=== PATIENT | female | born 1970 | race Two or more races ===

== ENCOUNTER 2016-06-18 23:16 | Emergency (ER) | payer SELFPAY ==
--- NOTE | 2016-06-19 00:56 | ER Document Report ---
ED Extremity Problem, Lower - General Chief Complaint: Leg Pain Stated Complaint: LEFT LEG AND HIP PAIN Time seen by provider: 00:56 Mode of Arrival: Wheelchair Information source: Patient, Relative - Son TRAVEL OUTSIDE OF THE [place] IN LAST 30 DAYS: No - HPI Patient complains to provider of: Pain Location: Knee Occurred: Other - 3 weeks Onset/Duration: Gradual, Persistent Quality of pain: Achy Severity: Moderate Pain Level: 3 Context: Direct blow Recent injury: No Exacerbated by: Movement, Walking Relieved by: Nothing Notes: Patient is a 46-year-old female who presents to the emergency room complaining of left knee pain, states she had an injury at work when a metal object fell and hit her on the medial left knee, this occurred back in January, she was initially seen, states she had x-rays performed at that time and was diagnosed with a bony contusion, she seemed to get better intermittently, over the last 2- 3 weeks she reports feeling increased pain, swelling and mild bruising to this area once again, she denies any new injury, she did follow up at her primary care provider's office 2 weeks ago, states she had repeat x-rays done but has not followed up for results - Related Data Allergies/Adverse Reactions: No Known Allergies Allergy (Verified 06/18/16 23:35) Past Medical History - General Information source: Patient, Relative - Son - Social History Smoking Status: Never Smoker Chew tobacco use (# tins/day): No Frequency of alcohol use: None Drug Abuse: None Family History: Reviewed & Not Pertinent Patient has suicidal ideation: No Patient has homicidal ideation: No Neurological Medical History: Denies: Hx Seizures Renal/ Medical History: Denies: Hx Peritoneal Dialysis Past Surgical History: Review of Systems - Review of Systems Constitutional: No symptoms reported EENT: No symptoms reported Cardiovascular: No symptoms reported Respiratory: No symptoms reported Gastrointestinal: No symptoms reported Genitourinary: No symptoms reported Female Genitourinary: No symptoms reported Musculoskeletal: See HPI Skin: No symptoms reported Hematologic/Lymphatic: No symptoms reported Neurological/Psychological: No symptoms reported -: Yes All other systems reviewed and negative Physical Exam - Vital signs Vitals: Temp Pulse Resp BP Pulse Ox 98.0 F 81 16 124/75 99 06/18/16 23:23 06/18/16 23:23 06/18/16 23:23 06/18/16 23:23 06/18/16 23:23 Interpretation: Normal - Notes Notes: - General General appearance: Appears well, Alert In distress: None - HEENT Head: Normocephalic, Atraumatic Eyes: Normal Conjunctiva: Normal Extraocular movements intact: Yes Eyelashes: Normal Pupils: PERRL - Respiratory Respiratory status: No respiratory distress - Cardiovascular Rhythm: Regular - Abdominal Inspection: Normal - Back Back: Normal - Extremities General upper extremity: Normal inspection General lower extremity: Mild purplish discoloration to the medial left knee, tenderness to palpate along medial joint line and in popliteal space, distal sensation and motor is intact - Neurological Neuro grossly intact: Yes Orientation: AAOx4 [place] Coma Scale Eye Opening: Spontaneous [place] Coma Scale Verbal: Oriented [place] Coma Scale Motor: Obeys Commands [place] Coma Scale Total: 15 - Psychological Associated symptoms: Normal affect, Normal mood - Skin Skin Temperature: Warm Skin Moisture: Dry Skin Color: Normal Course - Re-evaluation Re-evalutation: 06/19/16 03:12 Patient with likely soft tissue injury to the left knee, she recently had x- rays performed at her primary care providers and has an appointment to follow- up this week for results, she states she's been taking Motrin at home which was previously prescribed which is not touching her pain at this point in time, therefore she was given a dose of Vicodin in the emergency room, as well as a prescription for same and advised to follow-up with her primary care provider as directed, she was also provided with information for follow-up with orthopedics and advised to return if symptoms worsen, patient acknowledges understanding and agreement with this plan - Vital Signs Vital signs: Temp Pulse Resp BP Pulse Ox 98.0 F 81 16 124/75 99 06/18/16 23:23 06/18/16 23:23 06/18/16 23:23 06/18/16 23:23 06/18/16 23:23 Discharge - Discharge Clinical Impression: Contusion of left knee Qualifiers: Encounter type: initial encounter Qualified Code(s): S80.02XA - Contusion of left knee, initial encounter Condition: Stable Disposition: HOME, SELF-CARE Instructions: Contusion ([facility]), Suspected Internal Knee Injury ([facility]), Sprained Knee ([facility]), Ice & Elevation ([facility]), Oral Narcotic Medication ([facility]) Additional Instructions: Follow up with your primary care provider and an orthopedic surgeon in one to 2 days. Return to the emergency room immediately if symptoms worsen or any additional concerns. Ice and elevate the affected extremity. Limit weightbearing. Prescriptions: Hydrocodone/Acetaminophen [Hydrocodon-Acetaminophen 5-325] 1 each PO Q6 #20 tablet Referrals: BOOM WOODALL DO [ACTIVE STAFF] - Follow up as needed
[2016-06-19] MEDS ORDERED: HYDROCODONE/ACETAMINOPHEN 5-325 MG TABLET PO ONE (00:58)
[2016-06-19] MEDS ORDERED: HYDROCODONE/ACETAMINOPHEN 5-325 MG 6 TAB/DSPK PO PRN (00:58)
[2016-06-19 03:17] VITALS: BP 119/71
== END 2016-06-19 01:05 | disposition home or self-care (01) ==
LOC: ER 23:16
DX: S80.02XA Contusion of left knee, initial encounter (principal); W20.8XXA Other cause of strike by thrown, projected or falling object, initial encounter; Y99.0 Civilian activity done for income or pay
CPT/HCPCS: 99283